=== PATIENT | male | born 1985 | race Caucasian/White ===

== ENCOUNTER 2017-09-25 17:40 | Emergency (ER) | payer SELFPAY, OTHER ==
[2017-09-25 19:14] LABS: ADD MAN DIFF? NO
[2017-09-25 19:18] LABS: BASO # 0.1 x10^3/uL (0.0-0.2); BASO % 1 % (0-3); EOS # 0.3 x10^3/uL (0.0-0.7); EOS % 3 % (0-3); HEMATOCRIT 43.6 % (39.0-53.0); HEMOGLOBIN 15.1 g/dL (13.0-17.5); LYMPH # 3.4 x10^3/uL (1.0-4.8); LYMPH % 38 % (24-48); MEAN CORPUSCULAR HEMOGLOBIN 31 pg (25-35); MEAN CORPUSCULAR HGB CONC 35 g/dL (31-37); MEAN CORPUSCULAR VOLUME 89 fL (79-100); MONO # 0.6 x10^3/uL (0.0-1.1); MONO % 6 % (0-9); NEUT # 4.7 x10^3uL (1.8-7.7); NEUT % 52 % (31-73); PLATELET COUNT 372 x10^3/uL (140-400); RED CELL DISTRIBUTION WIDTH 12.8 % (11.5-14.5); WHITE BLOOD COUNT 8.9 x10^3/uL (4.0-11.0)
[2017-09-25 19:28] LABS: ANION GAP 9 (6-14); BLOOD UREA NITROGEN 7 mg/dL (8-26); BUN/CREATININE RATIO 9 (6-20); CALCIUM 8.7 mg/dL (8.5-10.1); CARBON DIOXIDE 29 mmol/L (21-32); CHLORIDE 101 mmol/L (98-107); CREATININE 0.8 mg/dL (0.7-1.3); GFR 110.7; GLUCOSE 66 mg/dL (70-99); POTASSIUM 3.1 mmol/L (3.5-5.1); SODIUM 139 mmol/L (136-145)
[2017-09-25 19:33] LABS: ALBUMIN 3.7 g/dL (3.4-5.0); ALBUMIN/GLOBULIN RATIO 0.8 (1.0-1.7); ALK PHOS 71 U/L (46-116); ALT (SGPT) 27 U/L (16-63); AST (SGOT) 18 U/L (15-37); TOTAL BILIRUBIN 0.3 mg/dL (0.2-1.0); TOTAL PROTEIN 8.2 g/dL (6.4-8.2)
== END 2017-09-25 20:58 | disposition home or self-care (01) ==
LOC: ER 17:40
DX: L03.032 Cellulitis of left toe (principal); E11.9 Type 2 diabetes mellitus without complications; E78.00 Pure hypercholesterolemia, unspecified; I10 Essential (primary) hypertension
CPT/HCPCS: 36415; 73630; 80053; 85025; 99285

== ENCOUNTER 2017-10-22 17:36 | Emergency (ER) | payer SELFPAY ==
[~2017-10-22] VITALS: Ht 193 cm; Wt 115.7 kg
[~2017-10-22 17:36] MED LIST: CEPH-264 PO; INSU100V8 SQ; LISI30TA4 PO; METF10003 PO; METF500T PO; SIMV10TA3 PO; SITA50TA PO; SULF1TAB24 PO
[2017-10-22 18:23] VITALS: BP 145/86
[2017-10-22] MEDS ORDERED: MORPHINE SULFATE 10 MG/ML VIAL. IM ONE (19:00)
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
[2017-10-22] MEDS ORDERED: OXYC5TAB95 PO (20:52)
[2017-10-22] MEDS ORDERED: CYCL10TA2 PO (20:52)
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
== END 2017-10-22 21:20 | disposition home or self-care (01) ==
LOC: ER 17:36
DX: M54.5 Low back pain (principal); M54.12 Radiculopathy, cervical region; E11.9 Type 2 diabetes mellitus without complications; E78.00 Pure hypercholesterolemia, unspecified; I10 Essential (primary) hypertension; Z90.89 Acquired absence of other organs; V49.9XXA Car occupant (driver) (passenger) injured in unspecified traffic accident, initial encounter; Y93.89 Activity, other specified; Y92.89 Other specified places as the place of occurrence of the external cause; Y99.8 Other external cause status; N50.811 Right testicular pain
CPT/HCPCS: 72100; 72125; 76870; 96372; 99284; J2270

== ENCOUNTER 2019-01-19 12:43 | Emergency (ER) | payer MEDICAID ==
[~2019-01-19] VITALS: Ht 193 cm; Wt 127.0 kg
[~2019-01-19 12:43] MED LIST changes: +CYCL10TA2 PO; -METF10003 PO; +METF10007 PO; +OXYC5TAB4 PO; +SIMV10TA15 PO; -SIMV10TA3 PO
[2019-01-19 12:50] VITALS: BP 148/86
[2019-01-19] MEDS ORDERED: DIPHTH,PERTUSS(ACELL),TET TOX 0.5 ML DISP.SYRIN. VAX IM ONE (14:00)
[2019-01-19] MEDS ORDERED: HYDR-3164 PO (14:09)
[2019-01-19] MEDS ORDERED: MUPI22OI2 TP (14:09)
[2019-01-19] MEDS ORDERED: CEPH500T PO (14:09)
--- NOTE | 2019-01-19 14:09 | PHYS DOC ---
Past Medical History Past Medical History: Diabetes-Type II, High Cholesterol, Hypertension Additional Past Medical Histor: pituitary cyst Past Surgical History: No Surgical History Additional Past Surgical Histo: PITUITARY GLAD Alcohol Use: None Drug Use: None Adult General Chief Complaint Chief Complaint: SKIN PROBLEM HPI HPI Patient is a 34 year old male with history of diabetes type 2, hypertension, high cholesterol, who presents to the ED today complaining sores on top of his head and on the right inner biceps region that began 3 days ago. Patient denies any fever. Review of Systems Review of Systems Constitutional: Denies fever or chills [] Musculoskeletal: Denies back pain or joint pain [] Integument: Reports sores on his head and right upper extremity Neurologic: Denies headache, focal weakness or sensory changes [] All other systems were reviewed and found to be within normal limits, except as documented in this note. Current Medications Current Medications Current Medications Medications (Trade) Dose Ordered Sig/Blake Start Time Stop Time Status Last Admin Dose Admin Diphtheria/ Tetanus/Acell Pertussis (Boostrix) 0.5 ml ONCE ONCE 01/19/19 14:00 01/19/19 14:01 DC 01/19/19 13:57 0.5 ML Allergies Allergies Allergies Coded Allergies Type Severity Reaction Last Updated Verified No Known Drug Allergies 11/22/14 No Physical Exam Physical Exam Constitutional: Well developed, well nourished, no acute distress, non-toxic appearance. [] . Skin: bald scalp with an area of cellulitis approx 0.3X0.3 cm with no drainage, right inner biceps with an areas of cellulitis approx. 1X1cm with no drainage. Back: No tenderness, no CVA tenderness. [] Extremities: No tenderness, no cyanosis, no clubbing, ROM intact, no edema. [] Neurologic: Alert and oriented X 3, normal motor function, normal sensory function, no focal deficits noted. [] Psychologic: Affect normal, judgement normal, mood normal. [] Current Patient Data Vital Signs Vital Signs Date Time Temp Pulse Resp B/P (MAP) Pulse Ox O2 Delivery O2 Flow Rate FiO2 01/19/19 12:50 98.7 124 17 148/86 (106) 97 Room Air 98.7 EKG EKG [] Radiology/Procedures Radiology/Procedures [] Course & Med Decision Making Course & Med Decision Making Pertinent Labs and Imaging studies reviewed. (See chart for details) This is a 34-year-old male patient presented to the ED today with a lesion of cellulitis of the right upper extremity and scalp. Tetanus was updated. Discharged on cephalexin and provided Bactroban ointment. Follow-up with PCP in 1-2 weeks. Rosibel Disclaimer Dragon Disclaimer This electronic medical record was generated, in whole or in part, using a voice recognition dictation system. Departure Departure Impression: Primary Impression: Cellulitis of scalp Additional Impression: Cellulitis of right lower extremity Disposition: HOME, SELF-CARE Condition: STABLE Referrals: RACHELE PRINCE MSN, RN, [employer]IST (PCP) follow up in 1-2 weeks Patient Instructions: Cellulitis, Iptc-ed-Dpam Additional Instructions: You were evaluated in the emergency room and noted to have skin infection, we put you on antibiotics, use them as prescribed. Follow up with your doctor in 10 days Scripts Hydrocodone/Apap 5-325 (NORCO 5-325 TABLET) 1 Each Tablet 1 TAB PO Q6HRS PRN for PAIN, #10 TAB Prov: STEFFANY BUSTAMANTE APRN 01/19/19 Mupirocin (MUPIROCIN OINTMENT) 22 Gm Oint...g. 1 INDIO TP TID for WOUND CARE, #1 TUBE Prov: STEFFANY BUSTAMANTE APRN 01/19/19 Cephalexin (CEPHALEXIN) 500 Mg Tablet 1 TAB PO TID, #30 TAB Prov: STEFFANY BUSTAMANTE APRN 01/19/19 Problem Qualifiers STEFFANY BUSTAMANTE APRN Jan 19, 2019 14:09
== END 2019-01-19 14:12 | disposition home or self-care (01) ==
LOC: ER 12:43
DX: L03.811 Cellulitis of head [any part, except face] (principal); L03.115 Cellulitis of right lower limb; E11.9 Type 2 diabetes mellitus without complications; E78.00 Pure hypercholesterolemia, unspecified; I10 Essential (primary) hypertension
CPT/HCPCS: 90471; 90715; 99283

== ENCOUNTER 2019-03-27 11:51 | Emergency (ER) | payer MEDICAID ==
[~2019-03-27 11:51] MED LIST changes: +CEPH500T PO; +HYDR-3164 PO; +MUPI22OI2 TP
== END 2019-03-27 13:12 | disposition left against medical advice (07) ==
LOC: ER 11:51
DX: S99.921A Unspecified injury of right foot, initial encounter (principal); Z53.21 Procedure and treatment not carried out due to patient leaving prior to being seen by health care provider; W22.8XXA Striking against or struck by other objects, initial encounter; Y93.89 Activity, other specified; Y92.89 Other specified places as the place of occurrence of the external cause; Y99.8 Other external cause status